=== PATIENT | female | born 1995 | race Caucasian/White ===

== ENCOUNTER 2017-08-21 18:22 | Emergency (ER) | payer OTHER ==
[~2017-08-21] VITALS: Ht 152.4 cm; Wt 58.0 kg
[2017-08-21 18:31] VITALS: TEMP 37.2; Ht 152.4 cm; Wt 58.0 kg
--- NOTE | 2017-08-21 19:33 | DIAGNOSTIC IMAGING REPORT ---
L FOOT MIN 3 VIEWS ROUTINE CLINICAL HISTORY: 21 years-old Female presenting with finished ultra [place], now with foot pain. TECHNIQUE: Frontal, oblique, and lateral views of the left foot were obtained. COMPARISON: None. FINDINGS: No acute fracture or malalignment. No periosteal reaction or medullary sclerosis to suggest a stress injury. No radiographic soft tissue abnormality. IMPRESSION: No acute osseous injury. If there is continuing clinical concern for stress injury, noncontrast MR could be obtained, which is more sensitive. Electronically signed by: Sergio Richey M.D. 08/21/2017 7:32 PM Dictated Date/Time: 08/21/2017 7:30 PM
--- NOTE | 2017-08-21 20:04 | EMERGENCY ROOM VISIT NOTE ---
ED Visit Note First contact with patient: 19:50 CHIEF COMPLAINT: Foot pain HISTORY OF PRESENT ILLNESS: This 21-year-old female patient presents to the emergency department with her parents complaining of swelling and pain in the left foot at rest and worse with weight bearing. The patient ran a 50 mile race today on gravel. The patient rates the pain as throbbing and 8/10. The patient has has taken Advil with no relief of the pain. The patient is not to walk. No numbness or weakness. No ankle pain. There are no lacerations of the foot. The patient is having difficulty with dorsiflexion of the foot. She has had previous peroneal tendinitis in this foot. REVIEW OF SYSTEMS: GENERAL: A 6 system review of systems was completed with positives and pertinent negatives in the HPI. ALLERGIES: No known drug allergies MEDICATIONS: Reviewed PMH: Otherwise healthy SOCIAL HISTORY: She has a [employer] PHYSICAL EXAM: Vital Signs: Reviewed Nurse's notes, vital signs stable. GENERAL : 21-year-old female, in no acute distress, but appears in pain, well-developed , well-nourished. MUSCULOSKELATAL: There is no visual deformity of the left foot. There is no erythema or ecchymosis. There is no warmth. There is tenderness and swelling over the lateral cuneiform of the left foot. There is no tenderness over the lateral or medial malleolus. No tenderness of the tib/ fib. The range of motion of the left foot is limited secondary to pain. There is no tenderness over the plantar fascia. The skin is intact and there are no lacerations or puncture wounds. Dorsalis pedis pulse 2+. Capillary refill less than 2 seconds. EMERGENCY DEPARTMENT COURSE: I examined the patient. An X-ray of the left foot was reviewed LEFT FOOT XRAY IMPRESSION: No acute osseous injury. If there is continuing clinical concern for stress injury, noncontrast MR could be obtained, which is more sensitive. The patient was placed in put in a gel ankle splint and instructed on the use of crutches. She was given a home pack for [place]. The patient was discharged home in good condition. DIAGNOSIS: Foot pain likely tendinitis TREATMENT: Ice and elevation for 24-48 hrs. keep the ankle splint in place while up and about. Minimal weightbearing on the left foot for at least the next 48 hours. Use crutches to get around. Ibuprofen 600 mg every 6 hours [place] 1-2 tabs every 4 hours for severe pain. Do not drink alcohol or drive while taking this medication. This may be taken with ibuprofen, but avoid Tylenol. Please follow up with your orthopedic surgeon if symptoms persist in 5-7 days. This chart was completed in part utilizing [email or web address] Speech Voice Recognition software. Attempts were made to minimize the grammatical errors, random word insertions, pronoun errors and incomplete sentences. Any formal questions or concerns about the content, text or information contained within the body of this dictation should be directly addressed to the provider for clarification.
[2017-08-21 20:12] VITALS: BP 111/73; PULSE 84; O2SAT 99
[2017-08-21] MEDS ORDERED: NORCO 5/325MG HOME PACK PO ONE (20:15)
== END 2017-08-21 20:28 | disposition home or self-care (01) ==
LOC: C.EDB 18:23 → C.EDD 20:28
DX: M79.672 Pain in left foot (principal)